=== PATIENT | female | born 1955 | race Caucasian/White ===

== ENCOUNTER 2022-11-27 10:30 | Day surgery (SDC) | payer OTHER ==
--- NOTE | 2022-11-26 12:08 | RAD REPORT ---
EXAM DESCRIPTION: RAD - Chest Pa And Lat (2 Views) - 11/26/2022 12:02 pm CLINICAL HISTORY: pre procedure, hypertension COMPARISON: No comparisons FINDINGS: Lines: None. Lungs: No evidence of edema or pneumonia. Pleural: No significant pleural effusions or pneumothorax. Cardiac: The heart size is within normal limits. Mediastinum: Within normal limits. Bones: No acute fractures. Other: None IMPRESSION: No acute cardiopulmonary disease.
[2022-11-26 12:23] LABS: Absolute Lymphocytes (CBC) 2.1 K/uL (0.7-4.9); Hematocrit 40.2 % (36.0-45.0); Lymphocytes % 38.6 % (15.3-44.8); MCV 92.1 fL (80-100); MPV 8.1 fL (7.6-11.3); Platelets 273 thou/uL (152-406); RBC Red Blood Cell Count 4.36 M/uL (3.86-4.86)
[2022-11-26 12:28] LABS: Protime INR 0.95
[2022-11-26 12:37] LABS: Potassium 4.2 mEq/L (3.5-5.1)
[2022-11-27] MEDS ORDERED: MIDAZOLAM HCL 2 MG/2 ML INJ ONE (11:22)
[2022-11-27] MEDS ORDERED: HEPA 1000U/500MLS 2,000 UNIT/1,000 ML BAG IV ONE (11:22)
[2022-11-27] MEDS ORDERED: FENTANYL CITR 100 MCG/2 ML ONE (11:22)
[2022-11-27] MEDS ORDERED: VERAPAMIL HCL 10 MG/4 ML VIAL IV ONE (11:23)
[2022-11-27] MEDS ORDERED: HEPARIN 5000 UNIT/ML 1 ML VIAL ONE (11:23)
[2022-11-27] MEDS ORDERED: TICAGRELOR 90 MG TABLET PO ONE (11:23)
[2022-11-27] MEDS ORDERED: HEPARIN 10,000 UNIT/10 ML VIAL IV ONE (11:23)
[2022-11-27] MEDS ORDERED: ATROPINE SULF 1 MG/10 ML SYR IV ONE (11:23)
[2022-11-27] MEDS ORDERED: CLOPIDOGREL 75 MG TABLET ONE (11:23)
[2022-11-27] MEDS ORDERED: ASPIRIN 325 MG TAB ONE (11:23)
[2022-11-27] MEDS ORDERED: LIDOCAINE 1% 20 ML MDV ONE (11:24)
[2022-11-27] MEDS ORDERED: NA CHLORIDE 0.9% 500 ML ONE (11:36)
--- NOTE | 2022-11-27 13:35 | OP ---
Date of Procedure: 11/27/2022 Surgeon: JAMIE PAK Procedures Performed: 1.Selective coronary angiogram. 2.Left heart catheterization. Indication: Abnormal stress test with chest pain. Access: Right radial artery 6-Malagasy closed with TR band. Complications: None. Bleeding: Less than 20 mL. Description Of Procedure: After risks, benefits, and alternatives were explained, the patient agreed to procedure and signed informed consent. The patient was brought into cardiac catheterization [facility], prepped and draped in the usual sterile fashion. Then, I accessed right radial artery using pediatric micropuncture kit, placed a 6-Malagasy Slender sheath and took a 5-Malagasy [place] 4.0 catheter into the aortic root, engaged left main and then right coronary artery, took standard views and then the catheter was pushed over the wire into the LV, measured LVEDP, pullback did not record any gradie nt and then removed the catheter and sheath, placed TR band with good hemostasis. Findings: 1.Left main; large and normal. 2.LAD; large and normal. Normal diagonal branches. 3.Left circumflex; it is large and codominant with ostial 20% stenosis. 4.RCA; it is large and codominant with proximal 30%, mid 20%. 5.Normal LVEDP between 5 and 10 mmHg. Conclusion: 1.Mild nonobstructive coronary artery disease. 2.Normal LVEDP. Plan: Medical management. /LUZMARIA Voice ID: [id number] Report ID: [id number]
[2022-11-27 14:57] VITALS: BP 151/74; O2SAT 96
--- NOTE | 2022-11-27 14:57 | EKG ---
Test Date: 2022-11-26 Test Time: 11:43:41 [employer] Sales Consultant: FRANCO MEASUREMENT RESULTS: Intervals: Rate: 58 WI: 190 QRSD: 74 QT: 392 QTc: 384 [place]: P: 6 WI: 190 QRS: 0 T: 36 INTERPRETIVE STATEMENTS: Sinus bradycardia Inferior infarct, age undetermined Abnormal ECG Compared to ECG 07/16/2017 14:58:46 Myocardial infarct finding now present Sinus rhythm no longer present Electronically Signed On 11-27-22 14:54:32 CDT by Carlos Manuel Gonzalez
== END 2022-11-27 14:35 | disposition home or self-care (01) ==
LOC: CCL 10:30
PROVIDERS: ATTEND Internal Medicine
DX: I25.10 Atherosclerotic heart disease of native coronary artery without angina pectoris (principal); I10 Essential (primary) hypertension; Z88.2 Allergy status to sulfonamides
CPT/HCPCS: 36415; 71046; 76937; 80048; 85025; 85610; 85730; 93005; 93458; C1893; J0461; J1644; J2001; J2250; J3010; J7040; Q9966